=== PATIENT | male | born 1965 | race Caucasian/White ===

== ENCOUNTER → 2020-10-12 | Outpatient (CLI) | payer OTHER ==
[~2020-10-12] MED LIST: CLARITIN10 MG PO; CRESTOR40 MG PO; MICARDIS40 MG PO; PEPCID40 MG PO; VITAMIN D3125 MC2 PO
== END ==
LOC: LAB 08:50
PROVIDERS: ATTEND Surgery Vascular Surgery
DX: Z01.812 Encounter for preprocedural laboratory examination (principal); Z20.828 Contact with and (suspected) exposure to other viral communicable diseases

== ENCOUNTER 2020-10-16 09:16 | Inpatient (IN) | payer OTHER ==
[2020-10-12 14:16] LABS: ABSOLUTE NEUTROPHILS 3.3 thou/uL (1.4-8.2); BASOPHILS 0.7 % (0.0-2.0); EOSINOPHILS 4.7 % (0.0-3.0); HEMATOCRIT 46.9 % (42.0-52.0); HEMOGLOBIN 15.4 gm/dL (14.0-18.0); LYMPHOCYTES 17.8 % (24.0-44.0); MCHC 32.9 g/dL (28.0-37.0); MCV 91.2 fL (80.0-100.0); MONOCYTES 15.6 % (1.0-8.0); PLATELET COUNT 232 thou/uL (150-400); POLYS 61.2 % (36.0-66.0); RBC 5.14 mil/uL (4.50-6.00); RDW 15.1 % (10.5-14.5); WBC 5.4 thou/uL (4.0-11.0)
[2020-10-12 14:17] LABS: URINE BILIRUBIN NEGATIVE (Negative); URINE BLOOD NEGATIVE (Negative); URINE CLARITY CLEAR; URINE COLOR YELLOW; URINE GLUCOSE-RANDOM* NEGATIVE (Negative); URINE KETONES NEGATIVE (Negative); URINE LEUKOCYTES-REFLEX NEGATIVE (Negative); URINE NITRITE-REFLEX NEGATIVE (Negative); URINE PROTEIN (DIPSTICK) NEGATIVE (Negative); URINE SPECIFIC GRAVITY <= 1.005 (1.005-1.035); URINE UROBILINOGEN 0.2 E.U./dl (0.2-1.0)
[2020-10-12 14:30] LABS: PROTIME 10.5 Seconds (9.3-11.4)
[2020-10-12 14:35] LABS: ALBUMIN 4.1 g/dL (3.4-5.0); CALCIUM 9.3 mg/dL (8.5-10.1); CREATININE 1.2 mg/dL (0.7-1.3); POTASSIUM 4.1 mmol/L (3.5-5.1); TOTAL BILIRUBIN 0.5 mg/dL (0.2-1.0); TOTAL PROTEIN 7.2 g/dL (6.4-8.2)
--- NOTE | 2020-10-13 07:16 | EKG ---
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 10/13/20 0716 1411 1411 Heath Shaver MD, FACC /EPI
[~2020-10-16] VITALS: Ht 185.4 cm; Wt 100.7 kg
[2020-10-18] VITALS (27 sets, daily range): BP systolic 100–135; BP diastolic 66–87
--- NOTE | 2020-10-18 15:15 | NUR ---
recieved from the PACU per bed drowsy but able to answerquestions. Placed in room, placed on monitor. Janelle terrell at present. Lindyene was off in PACU so we will observe, Left Chest tube intact and to Atrium, draining sanguanious fluid. Epidural intact no drainage noted,will comt to monitor.
--- NOTE | 2020-10-18 16:00 | NUR ---
Pt here ICU Visiting hours and Orientation to the room done. vosited at the bedside.
--- NOTE | 2020-10-18 18:00 | NUR ---
Pt loly his diet well, no c/o of any nausea. States very thristy. 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 Will cont to monitor.
--- NOTE | 2020-10-18 22:46 | NUR ---
ASSUMED CARE AT 1899, LIFELINE REPRESENTATIVES PUMP CLEARED PER PROTOCOL WITH OFF-GOING RN. EPIDURAL SITE C/D/I WITH MINIMAL BRUISING. THORACOTOMY AND CHEST TUBE SITES C/D/I WELL. 2043-BP ELEVATED ON ART LINE WITH SBP 150-160. TURNED CARDENE DRIP ON AT 2.5 MG/HR. SBP RETURNED TO <130 AND THEN CONTINUED TO DROP; AT 2053 TURNED CARDENE BACK OFF. EDUCATED PT THAT HIGHER BP MIGHT BE MORE RELATED TO PAIN AND TO BE SURE TO USE LIFELINE REPRESENTATIVES PUMP.
[2020-10-19] VITALS (34 sets, daily range): BP systolic 90–131; BP diastolic 56–87
[2020-10-19 05:59] LABS: HEMOGLOBIN 12.8 gm/dL (14.0-18.0); MCH 30.1 pg (26.0-34.0); MCHC 32.9 g/dL (28.0-37.0); MCV 91.6 fL (80.0-100.0); RBC 4.25 mil/uL (4.50-6.00); RDW 15.3 % (10.5-14.5); WBC 9.6 thou/uL (4.0-11.0)
[2020-10-19 06:18] LABS: CALCIUM 7.9 mg/dL (8.5-10.1); POTASSIUM 4.1 mmol/L (3.5-5.1)
--- NOTE | 2020-10-19 14:25 | NUR ---
ASSUMED CARE AT 0700, ASSESSMENT AND VITAL SIGNS COMPLETED PER ICU PROTOCOL. DR. CHAMPION ROUNDED THIS AM, PLAN OF CARE DISCUSSED. PT'S , MEME, WAS BEDSIDE SINCE THIS MORNING. RN WILL CONTINUE TO MONITOR.
--- NOTE | 2020-10-19 14:56 | NUR ---
ASSESSMENT: CM REVIEWED CHART AND MET WITH PT AND HIS AT THE BEDSIDE. PT IS ALERT AND ORIENTED X4. PT IS S/P THORACTOMY WITH UPPER LOBECTOMY. PT LIVES IN A HOUSE WITH HIS . PT HAS 1-2STEPS TO ENTER THE HOME AND NO STEPS ONCE INSIDE. PT DOES NOT HAVE ANY DME IN THE HOME. PT REPORTS HAVING A WALKER IN SHOWER WITH A BUILT IN BENCH. PT DENIES ANY HX OF HH IN THE PAST OR SNF. PT/OT IS ORDERED AND EVALS ARE PENDING. PT REMAINS NPO UNTIL FLATUS. CM WILL CONTINUE TO FOLLOW TO ASSIST WITH DISCHARGE NEEDS.
[2020-10-20] VITALS (28 sets, daily range): BP systolic 96–142; BP diastolic 57–89
--- NOTE | 2020-10-20 06:47 | NUR ---
ASSUMED PT CARE AT 1900. VSS. PT A&0X4. ON 4L NC WITH SATS OF 95% PT ABLE TO PULL IS TO 500. CHEST TUBE REMAINS SUTURED IN PLACE NO AIR LEAK OR CREPITUS NOTED, ATRIUM TIDALING PRESENT. 40ML FROM CHEST TUBE THIS SHIFT. PT IS STABLE. SLEPT WELL OVER NOC. NO FURTHER COMPLAINTS THIS SHIFT. WILL CONTINUE TO MONITOR PER POC.
--- NOTE | 2020-10-20 13:31 | NUR ---
ON-GOING ASSESSMENT: CM REVIEWED CHART. PT WORKED WITH THERAPY YESTEDAY AND ANTICIPATING PATIENT WILL BE ABLE TO GO HOME. PT ATTEMPTED TO WORK WITH THERAPY TODAY BUT ON BED REST DUE TO CHEST TUBE REMOVAL. THEY WILL ATTEMPT TO SEE PATIENT AGAIN. PT DOES NOT ANTICIPATE HAVING NEEDS FROM CM.
--- NOTE | 2020-10-20 13:33 | NUR ---
0800 UP TO CHAIR WITH ASSISTANCE X1. ENCOURAGED PT TO COUGH/DEEP BREATHE AND USE I.S. UP TO COMMODE AND HAD A SMALL LIQUID BM. HE STATES HE IS NOT PASSING ANY FLATUS. REMAINS NPO AT THIS TIME UNTIL ABLE TO PASS FLATUS. DENIES NAUSEA. BOWEL SOUNDS HYPOACTIVE. 1000 CHEST TUBE REMOVED BY LESA BAUMANN. CHEST XRAY DONE FOLLOWING. REMAINED ON BEDREST 1HR AFTER REMOVAL. 1100 AMBULATED IN HALLWAY X2 AND TOLERATED WELL. PT'S AT BEDSIDE.
[2020-10-21] VITALS (13 sets, daily range): BP systolic 107–141; BP diastolic 68–87
[2020-10-21 02:33] LABS: CALCIUM 8.5 mg/dL (8.5-10.1); CREATININE 0.8 mg/dL (0.7-1.3); POTASSIUM 3.8 mmol/L (3.5-5.1)
--- NOTE | 2020-10-21 10:36 | NUR ---
Assumed care at 0700, assessment and vital signs completed per ICU protocol. RN will continue to monitor.
--- NOTE | 2020-10-21 11:21 | O ---
[facility] [place] [address] OPERATIVE REPORT Name: ANA NICOLE Room #: 251-P ADM IN M.R.#: [id number] Admission: 10/18/20 Attend Phys: Tay Johnson MD Discharge: Date of : 65 Report #: [id number] THIS REPORT FOR: cc: Vijaya Dixon MD, Margaret A. 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 POSTOPERATIVE DIAGNOSIS: Chronic infiltrate left upper lobe of lung due to bronchial obstruction. OPERATIONS: Bronchoscopy, left thoracotomy with upper lobectomy. SURGEON: Tay Johnson MD TOOLROOM CLERK: LESA Hill ANESTHESIA: General. 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 The patient has had cultures done, and there is no evidence for fungal or AFB involvement. No evidence of carcinoma exists. FINDINGS AND TECHNIQUE: After general anesthesia was established, flexible diagnostic bronchoscopy was performed. There appeared to be some obstruction of what appeared to be the superior segment of the lingular orifice with some chronic changes in the airway and some flattening of airflow dividers but no true endobronchial lesions. A double lumen endotracheal tube was placed, and the patient was positioned with the left side up. Exposure was obtained through posterolateral thoracotomy using a rib sparing, nerve sparing approach entering the fifth interspace. Unfortunately, this exposure appeared to be too low. It was thought that perhaps with the chronic decreased ventilation in the upper lobe that there had been some shift in the chest wall relative to the hilum. In any event, an incision was made, and a second intercostal flap was made above the 5th rib, and the 5th rib was excised for exposure. With our improvement exposure, we saw that the upper lobe was chronically [facility] [address] [place] [address] OPERATIVE REPORT Name: ANA NICOLE Room #: 251-P ADM IN M.R.#: [id number] Admission: 10/18/20 Attend Phys: Tay Johnson MD Discharge: Date of : 65 Report #: [id number] turgid. The nearly complete fissure was exploited to expose the interlobar pulmonary artery sequentially, pulmonary arterial and venous branches were ligated and divided. There was some difficulty with exposure due to the uncompressible upper lobe. After the pulmonary arterial and venous branches were ligated and divided with the stapler, the bronchus was circum-dissected and stapled after testing ventilation. The bronchus was divided, and the lobe was submitted for pathology. The stump was tested and found to be secured. Pulmonary ligament was divided. Chest was irrigated, and hemostasis was ascertained. Wound was closed in layers, maintaining the nerve sparing approach by drilling through the 6th rib and placing pericostal sutures to preserve the intercostal muscle flaps. A chest tube had been put through a separate stab wound prior to closure. The patient tolerated the procedure well and was taken to the recovery area in good condition. All counts reported as correct. <ELECTRONICALLY SIGNED> By: Tay Johnson MD 10/21/20 1121 1400 1421 Tay Johnson MD /nt
[2020-10-22] VITALS (10 sets, daily range): BP systolic 110–135; BP diastolic 69–91
--- NOTE | 2020-10-22 04:05 | NUR ---
Patient tried to lay on his ight side, but desats to 80-82%, takes abou 5 min to recover to 92% when moved back to semi fowlers. When asleep patient snores, and sleeps with mouth open, has to aroused to take a breath r/t o2 sat 85-88%, recovered within 1 min to 92% o2 sat. Patient denied wanting to take any pain medication other than Tylenol, stated Tramadol made him feel unwell, dizzy, sweaty, and uneasy in his stomach. Pregressing toward goals.
--- NOTE | 2020-10-22 13:24 | NUR ---
PT MOTIVATED, PULLING 1,500 ON INCENTIVE SPIROMETER, UP IN CHAIR SINCE BREAKFAST, AMBULATING IN CANO WITH ONE ASSIST, SPLINTING L LATERAL CHEST WITH ANY ACTIVITY. IN ROOM PROVIDING SUPPORT. PROGRESSING.
--- NOTE | 2020-10-22 14:05 | NUR ---
report previously given to CALI Martinez. pt transferred to ccu #201, ambulated with gait belt on and one RN assist. present.
--- NOTE | 2020-10-22 18:39 | NUR ---
PT ARRIVED TO UNIT FROM ICU APPROX 1400. PT ALERT AND ORIENTED.VSS. O2 SATS WNL ROOM AIR. UP AD JOLEEN TOLERATING WELL. DENIES SOB. DRESSING CDI. SPOUSE AT BEDSIDE. PT HAD ASYMPTOMATIC RUN VTACH- CHARTED. MONITORING RHYTHM. PT PROGRESSING VERY WELL. TYLENOL GIVEN X1. CONT WITH POC. WILL PASS ON REPORT TO CARO LEIVA.
[2020-10-23 04:00] VITALS: BP 135/83
[2020-10-23 07:30] VITALS: BP 137/97
--- NOTE | 2020-10-23 08:45 | NUR ---
ASSUME CARE 1900. PT/VITALS STABLE. DENIES ANY PAIN. TOLERATES ACTIVITY WELL. ASSESSMETN ASA CHARTED. PROGRESSING WELL WITH POC. NO DISTRESS NOTED THEOUGH THE SIGHT/ SR ON MNITOR. ADEQUATE REST. PLAN IS POSSIBLE DISCHARGE WITHIN THE NEXT 2 DAYS. WILL CONTINUE TO MONITOR AND FOLLOW WITH POC
[2020-10-23] MEDS ORDERED: METOPROLOL SUCC25 M1 PO (10:16)
[2020-10-23 10:47] VITALS: BP 137/44
--- NOTE | 2020-10-23 11:23 | NUR ---
ASSUMED CARE PT SHIFT CHANGE. ASSESSMENT CHARTED MEDS GIVEN PER DEC. PT ALERT AND ORIENTED.VSS.UPAD JOLEEN PROMISE WELL. DRSNGS REMAIN DRY INTACT .DENIES SOB. O2 SATS WNL ROOM AIR. DC ACKNOWLEDGED AND IMPLEMENTED. DISCUSSED DC PAPERWORK WITH PT AND SPOUSE COMMUNICATES UNDERSTANDING. IV REMOVED TELE REMOVED. LEFT UNIT WITH ALL BELONGINGS.
--- NOTE | 2020-10-23 12:06 | PATH ---
[facility] [place] [address] PATHOLOGY RPT PROCEDURE Name: ANA NICOLE Room #: 201-P DIS IN M.R.#: [id number] Admission: 10/18/20 Date of : 65 Discharge: 10/23/20 Report #: [id number] Path Case #: [id number] L[facility] Accession Number: [id number] . 01 Material submitted: . lung - LEFT UPPER LOBE LUNG. Modifiers: left, upper . 01 Clinician provided ICD-10: Q32.4 . 01 Clinical history: . THORACOTMY BROCHOSCOPY LOBECTOMY LUNG BRONCHIAL ATRESIA . 02 Diagnosis: Lung, left upper lobe lung, lobectomy: - INVASIVE MODERATELY-DIFFERENTIATED ADENOCARCINOMA, ACINAR SUBTYPE (UP TO 90%) MEASURING 9.0 CM IN GREATEST DIMENSION. - FOCAL VISCERAL PLEURAL INVASION IDENTIFIED. - Bronchial margin negative for dysplasia or malignancy. - Vascular margin negative for malignancy. - ONE LYMPH NODE WITH FOCAL METASTATIC ADENOCARCINOMA (10/13). . (IUV:mml; 10/20/2020) . . Surgical Pathology Cancer Case Summary . Protocol Posting Date: November 2019 . LUNG: Procedure- Lobectomy Specimen Laterality- Left Tumor Site- Upper lobe of lung Tumor Size- 9.0 cm in greatest dimensions Tumor Focality- Single tumor Histologic Type- Invasive adenocarcinoma, acinar predominant Other subtypes present: lepidic (10 percent) Histologic Grade- G2: Moderately differentiated Spread Through Air Spaces- Identified Visceral Pleura Invasion- Identified Lymphovascular Invasion- Identified Direct Invasion of Adjacent Structures- No adjacent structures present Margins examined: Bronchial, Vascular and Visceral Pleura Margin involved- Visceral pleural margin Distance of invasive carcinoma from closest Bronchovascular margin [facility] [address] [place] [address] PATHOLOGY RPT PROCEDURE Name: ANA NICOLE Room #: 201-P [facility] IN [facility].#: [id number] Admission: 10/18/20 Date of : 65 Discharge: 10/23/20 Report #: [id number] Path Case #: [id number] (centimeters): 1.0 cm Treatment Effect- No known presurgical therapy Regional Lymph Nodes- Number of Lymph Nodes Examined: 8 Specify rafa station(s) examined: Hilar Lymph nodes. . . Pathologic Stage Classification (pTNM, AJCC 8th Edition) . TNM Descriptors- None Primary Tumor (pT) pT4: Tumor >7 cm in greatest dimension; or tumor of any size invading one or more of the following: diaphragm, mediastinum, heart, great vessels, trachea, recurrent laryngeal nerve, esophagus, vertebral body or cr; or separate tumor nodule(s) in an ipsilateral lobe different from that of the primary. . Regional Lymph Nodes (pN) pN1: Metastasis in ipsilateral peribronchial or ipsilateral hilar lymph nodes and intrapulmonary nodes including by direct extension. . Distant Metastasis (pM): pMx (unknown) QLM 10/23/2020 1130 Local . 02 Comment: Examination of the sections submitted as "indurated parenchyma", "cystic mucinous parenchyma" and "fleshy parenchyma" show an adenocarcinoma predominantly of acinar subtype. Focal lepidic pattern is identified with spread through the alveolar spaces. There is no malignancy identified within the section submitted as "unremarkable parenchyma". . Properly-controlled immunohistochemical stain and a special stain are performed on block A3: . VVG special stain: Shows focal loss of elastic lamina consistent with disruption of the visceral pleura by the tumor. . TTF-1: Shows strong reactivity within the tumor and presence of tumor with focal disruption of the visceral pleura. . Co-review: Skin Lifter Bacon slides (A4 and A8) were co-reviewed by Dr. Nayana Gonzáles who concurs with my diagnosis. . The findings of this case are discussed with Dr. Tay Johnson at approximately 3:00 p.m. on 10/20/[address] Stanton in the morning of 10/23/20. . (IUV:mml; 10/20/2020) [address] [address] PATHOLOGY RPT PROCEDURE Name: ANA NICOLE Room #: 201-P DIS IN M.R.#: [id number] Admission: 10/18/20 Date of : 65 Discharge: 10/23/20 Report #: [id number] Path Case #: [id number] . 02 Electronically signed: . Mariaelena Baptiste MD, Pathologist NPI- [id number] . 01 Gross description: . The specimen is received in formalin, labeled "Ana Nicole, left upper lobe lung" and consists of a 332 g lobectomy specimen measuring 14.8 x 11.5 x 4.8 cm. The pleural surface is purple hung to lee with 2 areas of disruption. There is an approximately 9.0 x 5.0 cm aspect that is markedly indurated with focal puckering (inked black). The bronchial stump measures 0.4 x 2.3 cm. The bronchi are opened revealing smooth rubbery linings. The parenchyma is soft spongy to fleshy pink-lee with the previously described indurated aspect showing mucinous, cystic, and friable to lobulated lee cut surfaces. This aspect abuts the inked pleural surface, 1.0 cm to the bronchial stump, and abuts the bronchi. Skin Lifter Bacon sections are submitted as follows: . A1: Possible lymph nodes adjacent to the bronchial stump A2: Bronchial stump margin A3-A4: Indurated parenchyma A5-A7: Cystic mucinous parenchyma A8: "Fleshy" parenchyma A9: Grossly unremarkable parenchyma (SDY; 10/19/2020) . After initial microscopic examination, additional sections are submitted as follows: . A10: 1 hilar lymph node, serially sectioned A11: 1 trisected hilar lymph node A12: 1 bisected hilar lymph node A13: 1 intact lymph node candidates (SDY; 10/20/2020) SYU/SYU 10/23/2020 1130 Local . 02 Pathologist provided ICD-10: C34.12 . 02 CPT . 219842, 769831, [id number] Specimen Comment: A courtesy copy of this report has been sent to [phone], [phone] Specimen Comment: [phone] Specimen Comment: Report sent to ,DR CORRALES / DR OLIVER Performed at: [address], [place], [place] [id number] [facility] [address] [place] [address] PATHOLOGY RPT PROCEDURE Name: ANA NICOLE Room #: 201-P DIS IN M.R.#: [id number] Admission: 10/18/20 Date of : 65 Discharge: 10/23/20 Report #: [id number] Path Case #: [id number] MD Jose F Mendoza MD Phone: [phone] Performed at: [facility] [address] [place], [place] [id number] MD Mariaelena Baptiste MD Phone: [phone]
== END 2020-10-23 11:28 | disposition home or self-care (01) | DRG 164 ==
LOC: PRE 09:16 → ICU 10-18 06:36 → TBA 10-18 06:36 → PRE 10-18 08:50 → ICU 10-18 15:45 → 2N 10-22 14:00
PROVIDERS: Physician Assistant; ADMIT Surgery Vascular Surgery; ATTEND Surgery Vascular Surgery
PROC: 0BBG0ZZ Excision of Left Upper Lung Lobe, Open Approach (ICD-10-PCS; principal; 2020-10-18)
PROC: 3E0T3BZ Introduction of Anesthetic Agent into Peripheral Nerves and Plexi, Percutaneous Approach (ICD-10-PCS; principal; 2020-10-18)
PROC: 0BJ08ZZ Inspection of Tracheobronchial Tree, Via Natural or Artificial Opening Endoscopic (ICD-10-PCS; principal; 2020-10-18)
DX: C34.12 Malignant neoplasm of upper lobe, left bronchus or lung (principal); K56.7 Ileus, unspecified; I10 Essential (primary) hypertension; E78.5 Hyperlipidemia, unspecified
CPT/HCPCS: 10078; 10081; 50010; 50101; 50386; 50417; 50455; 50497; 50739; 50740; 51301; 52191; 52301; 52303; 54118; 56524; 56525; 56526; 56527; 56528; 62110; 62900; 65020; 65040; 65075; 65105; 70005